=== PATIENT | male | born 1985 | race Caucasian/White ===

== ENCOUNTER 2016-06-26 19:40 | Emergency (ER) | payer MEDICAID ==
[2016-06-26 19:46] VITALS: BP 146/69; PULSE 75; RESP 16; TEMP 98.2; O2SAT 97
--- NOTE | 2016-06-26 20:02 | EDPHY ---
HPI/HX/ROS/PE/MDM Narrative: CHIEF COMPLAINT: Runny nose, sinus pain HPI: The patient is a 31-year-old male with no significant past medical history. He complains of approximately 5-7 days of nasal congestion, rhinorrhea , sinus pain particularly on the left as well as left ear pain. He denies fever. He denies recent trauma. He has been using NyQuil. REVIEW OF SYSTEMS: Aside from elements discussed in the HPI, a comprehensive 10-point review of systems was reviewed and is negative. PMH: History of sinus infection. SOCIAL HISTORY: Single. Denies drug abuse. PHYSICAL EXAM: General:Patient is alert, in no acute distress. ENT:Eyes are normal to inspection. ENT inspection normal. TMs are clear bilaterally. Mild frontal maxillary sinus tenderness on the left. EOMI. Neck: Normal inspection. Full range of motion. Respiratory:No respiratory distress. Breath sounds normal bilaterally. Neuro: Oriented x3. Normal motor function. Normal sensory function. MDM: This patient presents with acute sinusitis. He is requesting antibiotics. There is no evidence of abscess, stroke, sepsis. General Time Seen by Provider: 06/26/16 19:56 Initial Vital Signs: Initial Vital Signs Temperature (C) 36.8 C 06/26/16 19:43 Heart Rate 75 06/26/16 19:43 Respiratory Rate 16 06/26/16 19:43 Blood Pressure 146/69 H 06/26/16 19:43 O2 Sat (%) 97 06/26/16 19:43 O2 Delivery Mode Room Air Allergies/Adverse Reactions: No Known Allergies Allergy (Verified 06/26/16 19:46) Home Medications: Medication Instructions Recorded AZITHROMYCIN [Z-PACK] 250 mg PO DAILY 5 Days 06/26/16 Fluticasone Nasal [Flonase Nasal 2 sprays NASAL DAILY #1 mdi 06/26/16 [place]] Departure - Departure Disposition: Home, Routine, Self-Care Clinical Impression: Acute frontal sinusitis Condition: Good Instructions: Sinusitis (ED) Additional Instructions: Use ibuprofen and Tylenol as needed for pain. Follow up with your primary care physician within 72 hours for reevaluation. Drink plenty of fluids. Return to the emergency department immediately for high fever, severe headache or neck pain, difficulty breathing, abdominal pain, rash or other worsening of condition. Referrals: NONE *PRIMARY CARE P,. [Primary Care Provider] - As per Instructions Prescriptions: Fluticasone Nasal [Flonase Nasal [place]] 2 sprays NASAL DAILY #1 mdi AZITHROMYCIN [Z-PACK] 250 mg PO DAILY 5 Days
== END 2016-06-26 20:09 | disposition home or self-care (01) ==
DX: J01.10 Acute frontal sinusitis, unspecified (principal)